=== PATIENT | male | born 1940 | race Caucasian/White ===

== ENCOUNTER 2016-11-11 09:37 | Emergency (ER) | payer MEDICARE, OTHER ==
--- NOTE | 2016-11-11 10:33 | UC ---
Throat Pain/Nasal Carter HPI - HPI Summary HPI Summary: ONE WEEK COUGH SINUS CONGESTION, SORE THROAT. NO FEVER. NOW COUGH KEEPING HIM FROM SLEEPING. - History of Current Complaint Chief Complaint: UCRespiratory Stated Complaint: CONGESTION COUGH Time Seen by Provider: 11/11/16 10:04 Hx Obtained From: Patient Onset/Duration: Gradual Onset, Lasting Weeks, Still Present Severity: Moderate Cough: Nonproductive Associated Signs & Symptoms: Positive: Hoarseness, Sinus Discomfort, Nasal Discharge - Epiglottits Risk Factors Epiglottis Risk Factors: Negative - Allergies/Home Medications Allergies/Adverse Reactions: Allergies Allergy/AdvReac Type Severity Reaction Status Date / Time No Known Allergies Allergy Verified 11/11/16 09:46 Home Medications: Home Medications Atorvastatin* [Lipitor 40 MG*] 11/11/16 [History] Hydrochlorothiazide [Microzide-] 11/11/16 [History] PMH/Surg Hx/FS Hx/Imm Hx Previously Healthy: Yes Endocrine History Of: Denies: Diabetes, Thyroid Disease Cardiovascular History Of: Reports: Hypertension Denies: Cardiac Disorders Respiratory History Of: Denies: COPD, Asthma GI/ History Of: Denies: Ulcer - Surgical History Surgical History: None - Family History Known Family History: Negative: Respiratory Disease - Social History Occupation: Retired Lives: With Family Alcohol Use: None Substance Use Type: None Smoking Status (MU): Light Every Day Tobacco Smoker Type: Smokeless Tobacco Cessation Counseling: Patient Advised to Stop Review of Systems Constitutional: Negative Skin: Negative Eyes: Negative ENT: Sore Throat, Ear Ache, Nasal Discharge Respiratory: Cough Cardiovascular: Negative Gastrointestinal: Negative Genitourinary: Negative Motor: Negative Neurovascular: Negative Musculoskeletal: Negative Neurological: Negative Psychological: Negative All Other Systems Reviewed And Are Negative: Yes Physical Exam Triage Information Reviewed: Yes Appearance: Well-Appearing, No Pain Distress, Well-Nourished Vital Signs: Initial Vital Signs Temp 97.9 F 11/11/16 09:48 Pulse 78 11/11/16 09:48 Resp 16 11/11/16 09:48 BP 133/60 11/11/16 09:48 Pulse Ox 96 11/11/16 09:48 Vital Signs Reviewed: Yes Eye Exam: Normal Eyes: Positive: Conjunctiva Clear ENT: Positive: Hearing grossly normal, Nasal congestion, TM bulging, TM dull Dental Exam: Normal Neck exam: Normal Neck: Positive: Supple, Nontender, No Lymphadenopathy Respiratory Exam: Normal Respiratory: Positive: Chest non-tender, Lungs clear, Normal breath sounds, No respiratory distress Cardiovascular Exam: Normal Abdominal Exam: Normal Musculoskeletal Exam: Normal Neurological Exam: Normal Psychological Exam: Normal Skin Exam: Normal Throat Pain/Nasal Course/Dx - Differential Dx/Diagnosis Differential Diagnosis/HQI/PQRI: Pharyngitis, Sinusitis, Tonsillitis, URI Provider Diagnoses: SINUSITIS Discharge - Discharge Plan Condition: Stable Disposition: HOME Prescriptions: Benzonatate CAP* [Tessalon CAP*] 100 mg PO TID PRN #15 cap PRN Reason: Cough DOXYcycline CAP(*) [DOXYcycline 100MG CAP(*)] 100 mg PO BID #20 cap Patient Education Materials: Sinusitis (ED), Acute Bronchitis (ED) Referrals: Michael Perez MD [Primary Care Provider] -
== END 2016-11-11 10:21 | disposition home or self-care (01) ==
LOC: UCEAST 09:37
DX: J01.90 Acute sinusitis, unspecified (principal); B96.89 Other specified bacterial agents as the cause of diseases classified elsewhere; F17.210 Nicotine dependence, cigarettes, uncomplicated
CPT/HCPCS: 99202; G0463

== ENCOUNTER 2018-01-08 15:01 | Emergency (ER) | payer MEDICARE, OTHER ==
[2018-01-08] MEDS ORDERED: Albuterol/Ipratropium NEB.SOL* Albuterol 2.5 MG/Ipratropium 0.5 MG 3 ML INH ONE (15:55)
[2018-01-08] MEDS ORDERED: methylPREDNISolone 125 MG* 2 ML VIAL IV ONE (16:04)
[2018-01-08 16:12] LABS: ABS Basophils 0.1 10^3/ul (0-0.2); ABS Eosinophils 0.4 10^3/ul (0-0.6); ABS Lymphocytes 1.8 10^3/ul (1.0-4.8); ABS Monocytes 0.9 10^3/ul (0-0.8); ABS Neutrophils 5.5 10^3/ul (1.5-7.7); ABS Nucleated RBC 0 10^3/ul; Hematocrit 46 % (42-52); Hemoglobin 15.7 g/dl (14.0-18.0); Lymphocyte % 20.4 % (25-47); Mean Corpuscular HGB Conc 35 g/dl (31-36); Mean Corpuscular Hemoglobin 31 pg (27-31); Mean Corpuscular Volume 90 fL (80-94); Mean Platelet Volume 9 um3 (7.4-10.4); Nucleated Red Blood Cells % 0.1; Platelet Count 242 10^3/ul (150-450); Red Blood Count 5.04 10^6/ul (4.0-5.4); Red Cell Distribution Width 13 % (10.5-15); White Blood Count 8.6 10^3/ul (3.5-10.8)
[2018-01-08 16:20] LABS: INR 1.01 (0.77-1.02)
--- NOTE | 2018-01-08 16:25 | RAD ---
HISTORY: Shortness of breath COMPARISONS: November 16, 2017 VIEWS: 2: frontal portable view of the chest at 4 9:00 PM FINDINGS: LINES AND TUBES: None. CARDIOMEDIASTINAL SILHOUETTE: The cardiomediastinal silhouette is normal for portable technique. PLEURA: The costophrenic angles are sharp. No pleural abnormalities are noted. LUNG PARENCHYMA: The lungs are clear. ABDOMEN: The upper abdomen is clear. There is no subphrenic gas. BONES AND SOFT TISSUES: Degenerative changes are noted along the spine. IMPRESSION: NO ACTIVE CARDIOPULMONARY DISEASE.
[2018-01-08 16:28] LABS: EGFR Non-African American 85.5 (>60)
[2018-01-08] MEDS ORDERED: Azithromycin TAB* 250 MG PO ONE (17:19)
--- NOTE | 2018-01-08 17:24 | ED ---
Ruy Hudson Stephanie, scribed for René Rodrigues MD on 01/08/18 at 1559 . Shortness of Breath - HPI Summary HPI Summary: The pt is a 77 y/o M presenting to the ED with c/o SOB that began last night. He states he was unable to sleep last night due to his SOB. The pt states he has a hx of respiratory problems for the past 1.5 years. He denies CHF, fever and chills. The pt states he had a breathing treatment today at a [facility] which slightly improved his breathing. - History of Current Complaint Chief Complaint: EDShortnessOfBreath Time Seen by Provider: 01/08/18 15:45 Hx Obtained From: Patient Onset/Duration: Gradual Onset, Lasting Days - 1, Still Present Timing: Constant Dyspnea At: Rest Aggrevating Factors: Nothing Alleviating Factors: Bronchodilators Associated Signs & Symptoms: Cough (Productive) - Allergy/Home Medications Allergies/Adverse Reactions: Allergies Allergy/AdvReac Type Severity Reaction Status Date / Time No Known Allergies Allergy Verified 01/08/18 15:02 PMH/Surg Hx/FS Hx/Imm Hx Endocrine/Hematology History: Denies: Hx Diabetes, Hx Thyroid Disease Cardiovascular History: Reports: Hx Hypertension Respiratory History: Denies: Hx Asthma, Hx Chronic Obstructive Pulmonary Disease (COPD) GI History: Denies: Hx Ulcer - Surgical History Surgery Procedure, Year, and Place: NONE Infectious Disease History: No Infectious Disease History: Denies: Hx Clostridium Difficile, Hx Hepatitis, Hx Human Immunodeficiency Virus (HIV), Hx of Known/Suspected MRSA, Hx Shingles, Hx Tuberculosis, Hx Known/ Suspected VRE, Hx Known/Suspected VRSA, History Other Infectious Disease, Traveled Outside the [place] in Last 30 Days - Family History Known Family History: Negative: Respiratory Disease - Social History Occupation: Retired Lives: Alone Alcohol Use: None Substance Use Type: Reports: None Smoking Status (MU): Former Smoker Type: Smokeless Tobacco Review of Systems Negative: Fever, Chills Positive: Shortness Of Breath, Cough All Other Systems Reviewed And Are Negative: Yes Physical Exam - Summary Physical Exam Summary: General: well-appearing, mild respiratory distress Skin: warm, color reflects adequate perfusion, dry Head: normal Eyes: EOMI, DONALD ENT: normal Neck: supple, nontender Respiratory: bilateral wheezes and crackles, breath sounds present Cardiovascular: RRR Abdomen: soft, nontender Bowel: present Musculoskeletal: normal, strength/ROM intact, no pedal edema Neurological: normal, sensory/motor intact, A&O x3 Psychological: affect/mood appropriate Triage Information Reviewed: Yes Vital Signs On Initial Exam: Initial Vitals Temp Pulse Resp BP Pulse Ox 96.8 F 60 20 120/69 93 01/08/18 15:03 01/08/18 15:03 01/08/18 15:03 01/08/18 15:03 01/08/18 15:03 Vital Signs Reviewed: Yes Diagnostics - Vital Signs Vital Signs Temp Pulse Resp BP Pulse Ox 01/08/18 15:03 96.8 F 60 20 120/69 93 - Laboratory Lab Results: Lab Results 01/08/18 01/08/18 01/08/18 Range/Units 15:50 15:50 15:50 WBC 8.6 (3.5-10.8) 10^3/ul RBC 5.04 (4.0-5.4) 10^6/ul Hgb 15.7 (14.0-18.0) g/dl Hct 46 (42-52) % MCV 90 (80-94) fL MCH 31 (27-31) pg MCHC 35 (31-36) g/dl RDW 13 (10.5-15) % Plt Count 242 (150-450) 10^3/ul MPV 9 (7.4-10.4) um3 Neut % (Auto) 63.4 (38-83) % Lymph % (Auto) 20.4 L (25-47) % [place] % (Auto) 10.5 H (0-7) % Eos % (Auto) 5.0 (0-6) % Baso % (Auto) 0.7 (0-2) % Absolute Neuts (auto) 5.5 (1.5-7.7) 10^3/ul Absolute Lymphs (auto) 1.8 (1.0-4.8) 10^3/ul Absolute Monos (auto) 0.9 H (0-0.8) 10^3/ul Absolute Eos (auto) 0.4 (0-0.6) 10^3/ul Absolute Basos (auto) 0.1 (0-0.2) 10^3/ul Absolute Nucleated RBC 0 10^3/ul Nucleated RBC % 0.1 INR (Anticoag Therapy) (0.77-1.02) Sodium 136 (133-145) mmol/L Potassium 3.8 (3.5-5.0) mmol/L Chloride 103 (101-111) mmol/L Carbon Dioxide 25 (22-32) mmol/L Anion Gap 8 (2-11) mmol/L BUN 18 (6-24) mg/dL Creatinine 0.87 (0.67-1.17) mg/dL Est GFR ( Amer) 110.0 (>60) Est GFR (Non-Af Amer) 85.5 (>60) BUN/Creatinine Ratio 20.7 H (8-20) Glucose 152 H (70-100) mg/dL Lactic Acid (0.5-2.0) mmol/L Calcium 10.2 (8.6-10.3) mg/dL Magnesium 2.0 (1.9-2.7) mg/dL Total Bilirubin 1.20 H (0.2-1.0) mg/dL AST 18 (13-39) U/L ALT 17 (7-52) U/L Alkaline Phosphatase 76 (34-104) U/L Troponin I 0.01 (<0.04) ng/mL C-Reactive Protein < 1.00 (< 5.00) mg/L B-Natriuretic Peptide 36 ( - 100) pg/mL Total Protein 7.5 (6.4-8.9) g/dL Albumin 4.2 (3.2-5.2) g/dL Globulin 3.3 (2-4) g/dL Albumin/Globulin Ratio 1.3 (1-3) Lipase 14 (11.0-82.0) U/L TSH Pending 01/08/18 01/08/18 Range/Units 15:50 16:10 WBC (3.5-10.8) 10^3/ul RBC (4.0-5.4) 10^6/ul Hgb (14.0-18.0) g/dl Hct (42-52) % MCV (80-94) fL MCH (27-31) pg MCHC (31-36) g/dl RDW (10.5-15) % Plt Count (150-450) 10^3/ul MPV (7.4-10.4) um3 Neut % (Auto) (38-83) % Lymph % (Auto) (25-47) % [place] % (Auto) (0-7) % Eos % (Auto) (0-6) % Baso % (Auto) (0-2) % Absolute Neuts (auto) (1.5-7.7) 10^3/ul Absolute Lymphs (auto) (1.0-4.8) 10^3/ul Absolute Monos (auto) (0-0.8) 10^3/ul Absolute Eos (auto) (0-0.6) 10^3/ul Absolute Basos (auto) (0-0.2) 10^3/ul Absolute Nucleated RBC 10^3/ul Nucleated RBC % INR (Anticoag Therapy) 1.01 (0.77-1.02) Sodium (133-145) mmol/L Potassium (3.5-5.0) mmol/L Chloride (101-111) mmol/L Carbon Dioxide (22-32) mmol/L Anion Gap (2-11) mmol/L BUN (6-24) mg/dL Creatinine (0.67-1.17) mg/dL Est GFR ( Amer) (>60) Est GFR (Non-Af Amer) (>60) BUN/Creatinine Ratio (8-20) Glucose (70-100) mg/dL Lactic Acid 1.7 (0.5-2.0) mmol/L Calcium (8.6-10.3) mg/dL Magnesium (1.9-2.7) mg/dL Total Bilirubin (0.2-1.0) mg/dL AST (13-39) U/L ALT (7-52) U/L Alkaline Phosphatase (34-104) U/L Troponin I (<0.04) ng/mL C-Reactive Protein (< 5.00) mg/L B-Natriuretic Peptide ( - 100) pg/mL Total Protein (6.4-8.9) g/dL Albumin (3.2-5.2) g/dL Globulin (2-4) g/dL Albumin/Globulin Ratio (1-3) Lipase (11.0-82.0) U/L TSH Result Diagrams: 01/08/18 15:50 01/08/18 15:50 Lab Statement: Any lab studies that have been ordered have been reviewed, and results considered in the medical decision making process. - Radiology CXR Xray Interpretation: No Acute Changes Radiology Interpretation Completed By: Radiologist - NO ACTIVE CARDIOPULMONARY DISEASE. ED physician reviewed and agrees with this report. - EKG 16:34 Cardiac Rate: NL EKG Rhythm: Sinus Rhythm - 66 BPM Ectopy: PACs EKG Interpretation: LBBB Course/Dx - Course Course Of Treatment: BP noted and advised to follow up with PCP. IMPROVED IN ED AFTER DUONEB AND SOLUMEDROL IV. DISCUSSED RESULTS WITH PATIENT. [facility]; RETURN IF WORSE. - Diagnoses Provider Diagnoses: HTN (hypertension), COPD (chronic obstructive pulmonary disease), Bronchitis Discharge - Sign-Out/Discharge Documenting (check all that apply): Discharge - Discharge Plan Condition: Stable Disposition: HOME Prescriptions: Azithromycin 250 mg PO DAILY #4 tablet predniSONE TAB* [Deltasone TAB*] 40 mg PO DAILY #8 tab Patient Education Materials: Acute Bronchitis (ED), COPD (Chronic Obstructive Pulmonary Disease) (ED) Referrals: Michael Perez MD [Primary Care Provider] - Additional Instructions: FOLLOW UP WITH YOUR DOCTOR. RETURN TO THE EMERGENCY DEPARTMENT FOR ANY WORSENING OF YOUR CONDITION OR QUESTIONS OR CONCERNS. YOUR BLOOD PRESSURE WAS ELEVATED TODAY; FOLLOW UP WITH YOUR PRIMARY CARE DOCTOR WITHIN ONE WEEK. - Billing Disposition and Condition Condition: STABLE Disposition: HOME The documentation as recorded by the Ruy contreras Stephanie accurately reflects the service I personally performed and the decisions made by me, René Rodrigues MD.
[2018-01-08 17:35] VITALS: BP 135/70
== END 2018-01-08 17:35 | disposition home or self-care (01) ==
LOC: ED 15:01
DX: J44.9 Chronic obstructive pulmonary disease, unspecified (principal); I10 Essential (primary) hypertension; Z87.891 Personal history of nicotine dependence
CPT/HCPCS: 36415; 71045; 80053; 83605; 83690; 83735; 83880; 84443; 84484; 85025; 85610; 86140; 93005; 94640; 96374; 99283; A9270-GY; J2930

== ENCOUNTER 2019-01-21 09:32 | Emergency (ER) | payer MEDICARE, OTHER ==
[2019-01-21] MEDS ORDERED: methylPREDNISolone 125 MG* 2 ML VIAL IV ONE (09:45)
[2019-01-21] MEDS ORDERED: NS 0.9% 1000 ML** 1,000 ML IV ONE (09:45)
[2019-01-21] MEDS ORDERED: Albuterol/Ipratropium NEB.SOL* Albuterol 2.5 MG/Ipratropium 0.5 MG 3 ML INH ONE (09:45)
[2019-01-21 10:13] LABS: ABS Basophils 0 10^3/ul (0-0.2); ABS Eosinophils 0.1 10^3/ul (0-0.6); ABS Lymphocytes 0.9 10^3/ul (1.0-4.8); ABS Monocytes 0.3 10^3/ul (0-0.8); ABS Neutrophils 5.6 10^3/ul (1.5-7.7); ABS Nucleated RBC 0 10^3/ul; Hematocrit 48 % (36-46); Hemoglobin 16.2 g/dL (14.0-18.0); Lymphocyte % 12.7 %; Mean Corpuscular HGB Conc 34 g/dL (31-36); Mean Corpuscular Hemoglobin 30 pg (27-31); Mean Corpuscular Volume 90 fL (80-94); Mean Platelet Volume 8.6 fL (7.4-10.4); Nucleated Red Blood Cells % 0.1; Platelet Count 240 10^3/uL (150-450); Red Blood Count 5.35 10^6 /uL (4.18-5.48); Red Cell Distribution Width 13 % (10.5-15); White Blood Count 6.9 10^3/uL (3.5-10.8)
[2019-01-21 10:34] LABS: ALT 17 U/L (7-52); AST 14 U/L (13-39); Albumin 4.2 g/dL (3.2-5.2); Albumin/Globulin Ratio 1.4 (1-3); Alkaline Phosphatase 65 U/L (34-104); Anion Gap 6 mmol/L (2-11); BUN/Creatinine Ratio 24.7 (8-20); Blood Urea Nitrogen 20 mg/dL (6-24); C Reactive Protein < 1.00 mg/L (<8.01); CO2 Carbon Dioxide 29 mmol/L (22-32); Chloride 100 mmol/L (101-111); EGFR African American 112.1 (>60); EGFR Non-African American 92.6 (>60); Glucose 140 mg/dL (70-100); Potassium 4.3 mmol/L (3.5-5.0); Sodium 135 mmol/L (135-145); Total Protein 7.2 g/dL (6.4-8.9)
[2019-01-21 10:35] LABS: Troponin I 0.01 ng/mL (<0.04)
[2019-01-21 12:17] VITALS: BP 127/80
--- NOTE | 2019-01-21 17:24 | ED ---
Respiratory - HPI Summary HPI Summary: Patient is a 78-year-old male with a new and recent history of sarcoidosis diagnosed 2 months ago which is mild presenting to the ED with shortness of breath. He states he has a low-dose steroid he was placed on at home, 10 mg PO prednisone daily. He also has nebulizer at home which she has been using without improvement. He states he has had exacerbations in the past over the course of the past year or so and as needed an increased dose of steroids. He endorses symptoms of shortness of breath, and wheezing. Worse with lying flat, better with sitting upright. Denies history of CHF. Denies any cough or cough with production. Denies any body aches, fevers, sweats, chills, CP. - History of Current Complaint Chief Complaint: EDShortnessOfBreath Stated Complaint: CANT BREATHE PER PT Time Seen by Provider: 01/21/19 09:38 Hx Obtained From: Patient Onset/Duration: Sudden Onset Timing: Constant Initial Severity: Moderate Current Severity: Moderate Pain Intensity: 0 Character: Wheezing, Dyspnea at Rest, Orthopnea Sputum Amount: Moderate Aggravating Factor(s): Nothing Alleviating Factor(s): Nothing, Neb. Bronchodilators (Frequency Of Use) - 4-5 times per day, Steriods - 10mg prednisone daily Associated Signs and Symptoms: SOB - Risk Factors Status Asthmaticus Risk Factors: Recent Steroids - Allergy/Home Medications Allergies/Adverse Reactions: Allergies Allergy/AdvReac Type Severity Reaction Status Date / Time No Known Allergies Allergy Verified 01/08/18 15:02 Home Medications: Home Medications Albuterol 2.5MG/3ML (0.083%)* [Ventolin 2.5 MG/3 ML NEB.HIRAM*] 2.5 mg INH Q4H 12/10 [History Confirmed 01/21/19] Lisinopril TAB* [Prinivil TAB*] 10 mg PO DAILY 01/21/19 [History Confirmed 01/21] predniSONE TAB* [Deltasone 20 MG TAB*] 10 mg PO DAILY 01/21/19 [History Confirmed 01/21/19] PMH/Surg Hx/FS Hx/Imm Hx Previously Healthy: Yes Endocrine/Hematology History: Denies: Hx Diabetes, Hx Thyroid Disease Cardiovascular History: Reports: Hx Hypertension Respiratory History: Denies: Hx Asthma, Hx Chronic Obstructive Pulmonary Disease (COPD) GI History: Denies: Hx Ulcer - Surgical History Surgery Procedure, Year, and Place: NONE - Immunization History Hx Pertussis Vaccination: No Immunizations Up to Date: Yes Infectious Disease History: No Infectious Disease History: Denies: Hx Clostridium Difficile, Hx Hepatitis, Hx Human Immunodeficiency Virus (HIV), Hx of Known/Suspected MRSA, Hx Shingles, Hx Tuberculosis, Hx Known/ Suspected VRE, Hx Known/Suspected VRSA, History Other Infectious Disease, Traveled Outside the [place] in Last 30 Days - Family History Known Family History: Negative: Respiratory Disease - Social History Occupation: Unemployed Lives: With Family Alcohol Use: None Hx Substance Use: No Substance Use Type: Reports: None Hx Tobacco Use: Yes Smoking Status (MU): Former Smoker Type: Smokeless Tobacco Review of Systems Constitutional: Negative Negative: Fever, Chills, Fatigue, Skin Diaphoresis Negative: Palpitations, Chest Pain Positive: Shortness Of Breath. Negative: Cough Genitourinary: Negative Positive: no symptoms reported, see HPI Negative: Arthralgia, Myalgia Skin: Negative Neurological: Negative All Other Systems Reviewed And Are Negative: Yes Physical Exam Triage Information Reviewed: Yes Vital Signs On Initial Exam: Initial Vitals Temp Pulse Resp BP Pulse Ox 97.8 F 91 26 138/102 95 01/21/19 09:35 01/21/19 09:35 01/21/19 09:35 01/21/19 09:35 01/21/19 09:35 Vital Signs Reviewed: Yes Appearance: Positive: Well-Appearing, Well-Nourished Skin: Positive: Warm, Skin Color Reflects Adequate Perfusion Head/Face: Positive: Normal Head/Face Inspection Eyes: Positive: EOMI, Conjunctiva Clear Neck: Positive: Supple, No Lymphadenopathy Respiratory/Lung Sounds: Positive: Wheezes Cardiovascular: Positive: RRR, Pulses are Symmetrical in both Upper and Lower Extremities Musculoskeletal: Positive: Strength/ROM Intact Neurological: Positive: Speech Normal Psychiatric: Positive: Affect/Mood Appropriate Diagnostics - Vital Signs Vital Signs Temp Pulse Resp BP Pulse Ox 01/21/19 12:17 98.1 F 80 16 127/80 93 01/21/19 11:00 60 91 01/21/19 10:48 62 111/66 92 01/21/19 10:18 75 16 92 01/21/19 10:01 96 91 01/21/19 09:45 22 01/21/19 09:44 85 92 01/21/19 09:35 97.8 F 91 26 138/102 95 - Laboratory Lab Results: Lab Results 01/21/19 01/21/19 01/21/19 Range/Units 10:05 10:05 10:05 WBC 6.9 (3.5-10.8) 10^3/uL RBC 5.35 (4.18-5.48) 10^6 /uL Hgb 16.2 (14.0-18.0) g/dL Hct 48 H (36-46) % MCV 90 (80-94) fL MCH 30 (27-31) pg MCHC 34 (31-36) g/dL RDW 13 (10.5-15) % Plt Count 240 (150-450) 10^3/uL MPV 8.6 (7.4-10.4) fL Neut % (Auto) 81.0 % Lymph % (Auto) 12.7 % [place] % (Auto) 5.0 % Eos % (Auto) 1.0 % Baso % (Auto) 0.3 % Absolute Neuts (auto) 5.6 (1.5-7.7) 10^3/ul Absolute Lymphs (auto) 0.9 L (1.0-4.8) 10^3/ul Absolute Monos (auto) 0.3 (0-0.8) 10^3/ul Absolute Eos (auto) 0.1 (0-0.6) 10^3/ul Absolute Basos (auto) 0 (0-0.2) 10^3/ul Absolute Nucleated RBC 0 10^3/ul Nucleated RBC % 0.1 Sodium 135 (135-145) mmol/L Potassium 4.3 (3.5-5.0) mmol/L Chloride 100 L (101-111) mmol/L Carbon Dioxide 29 (22-32) mmol/L Anion Gap 6 (2-11) mmol/L BUN 20 (6-24) mg/dL Creatinine 0.81 (0.67-1.17) mg/dL Est GFR ( Amer) 112.1 (>60) Est GFR (Non-Af Amer) 92.6 (>60) BUN/Creatinine Ratio 24.7 H (8-20) Glucose 140 H (70-100) mg/dL Lactic Acid 1.4 (0.5-2.0) mmol/L Calcium 10.0 (8.6-10.3) mg/dL Total Bilirubin 1.50 H (0.2-1.0) mg/dL AST 14 (13-39) U/L ALT 17 (7-52) U/L Alkaline Phosphatase 65 (34-104) U/L Troponin I 0.01 (<0.04) ng/mL C-Reactive Protein < 1.00 (<8.01) mg/L B-Natriuretic Peptide (<=100) pg/mL Total Protein 7.2 (6.4-8.9) g/dL Albumin 4.2 (3.2-5.2) g/dL Globulin 3.0 (2-4) g/dL Albumin/Globulin Ratio 1.4 (1-3) /12/10 Range/Units 10:05 WBC (3.5-10.8) 10^3/uL RBC (4.18-5.48) 10^6 /uL Hgb (14.0-18.0) g/dL Hct (36-46) % MCV (80-94) fL MCH (27-31) pg MCHC (31-36) g/dL RDW (10.5-15) % Plt Count (150-450) 10^3/uL MPV (7.4-10.4) fL Neut % (Auto) % Lymph % (Auto) % [place] % (Auto) % Eos % (Auto) % Baso % (Auto) % Absolute Neuts (auto) (1.5-7.7) 10^3/ul Absolute Lymphs (auto) (1.0-4.8) 10^3/ul Absolute Monos (auto) (0-0.8) 10^3/ul Absolute Eos (auto) (0-0.6) 10^3/ul Absolute Basos (auto) (0-0.2) 10^3/ul Absolute Nucleated RBC 10^3/ul Nucleated RBC % Sodium (135-145) mmol/L Potassium (3.5-5.0) mmol/L Chloride (101-111) mmol/L Carbon Dioxide (22-32) mmol/L Anion Gap (2-11) mmol/L BUN (6-24) mg/dL Creatinine (0.67-1.17) mg/dL Est GFR ( Amer) (>60) Est GFR (Non-Af Amer) (>60) BUN/Creatinine Ratio (8-20) Glucose (70-100) mg/dL Lactic Acid (0.5-2.0) mmol/L Calcium (8.6-10.3) mg/dL Total Bilirubin (0.2-1.0) mg/dL AST (13-39) U/L ALT (7-52) U/L Alkaline Phosphatase (34-104) U/L Troponin I (<0.04) ng/mL C-Reactive Protein (<8.01) mg/L B-Natriuretic Peptide 31 (<=100) pg/mL Total Protein (6.4-8.9) g/dL Albumin (3.2-5.2) g/dL Globulin (2-4) g/dL Albumin/Globulin Ratio (1-3) Result Diagrams: 01/21/19 10:05 01/21/19 10:05 Lab Statement: Any lab studies that have been ordered have been reviewed, and results considered in the medical decision making process. Disposition - Course Course Of Treatment: On arrival into the ED, patient is given a DuoNeb for bilateral wheezing without rhonchorous sounds. Radiology report of CT chest requested from [facility]: Interval clearing of opacities present previously in the lower lobe bronchi. Mild bronchiectasis and bronchial thickening are noted in there are mild secretions in the trachea. There is otherwise no significant interval change. There is mild nonspecific opacity in the right lower lobe inferiorly. X-ray obtained: Stigmata of obstructive lung disease. No acute pulmonary or cardiac process evident. On reexamination, patient is feeling improved after 1 DuoNeb. Labs obtained and are all WNL including a BNP. Wheezing reduced throughout. He will be given increased and taper dose of steroids at this time and will follow up with Dr. Chen. He voices understanding of this plan and states he is asymptomatic on discharge. - Diagnoses Provider Diagnoses: Wheezing, Shortness of breath, COPD exacerbation Discharge - Sign-Out/Discharge Documenting (check all that apply): Patient Departure Patient Received Moderate/Deep Sedation with Procedure: No - Discharge Plan Condition: Stable Disposition: HOME Prescriptions: predniSONE [Prednisone 20 MG TAB] 20 mg PO SEE INSTRUCTIONS #24 tablet Patient Education Materials: COPD (Chronic Obstructive Pulmonary Disease) (ED) Referrals: Michael Perez MD [Primary Care Provider] - Meenakshi Chen MD [Medical Doctor] - Additional Instructions: Prednisone: Take 3 tabs x 3 days; 2 tabs x 5 days, take 1 tab x 5 days After this course, please resume your 10mg at home daily of prednisone Please follow up with Dr. Chen - call to make an appt If any symptoms become worse - return to the ED Continue your at home nebulizer treatments - Billing Disposition and Condition Condition: STABLE Disposition: Home
== END 2019-01-21 12:17 | disposition home or self-care (01) ==
LOC: ED 09:32
DX: J44.1 Chronic obstructive pulmonary disease with (acute) exacerbation (principal); Z87.891 Personal history of nicotine dependence; I10 Essential (primary) hypertension
CPT/HCPCS: 36415; 71046; 80053; 83605; 83880; 84484; 85025; 86140; 96374; 99282; A9270-GY; J2930

== ENCOUNTER 2019-12-05 11:11 | Emergency (ER) | payer MEDICARE, OTHER ==
--- NOTE | 2019-12-05 13:29 | ED ---
Neurological HPI - HPI Summary HPI Summary: Patient is a 79 y/o M presenting to the ED for a chief complaint of neurological deficit that occurred on 12/04/19. Patient reports having slurred speech while talking to his sister on the phone that lasted for 1 minute before resolving. He was sitting when the slurred speech began. Patient denies headache , nausea, vomiting, myalgia, or fever. Patient states that he believes he may have had a TIA. No aggravating factors are reported. PMHx is significant for COPD, HLD, and HTN, but he denies any cardiac problems. Dr. Michael Perez is his PCP, which he last saw one week ago and diagnosed with bronchitis. At that time , he was prescribed antibiotics, which he is currently completing. - History of Current Complaint Chief Complaint: EDNeurologicalDeficit Stated Complaint: POSS SEIZURE YESTERDAY PER PT Time Seen by Provider: 12/05/19 13:23 Hx Obtained From: Patient Onset/Duration: Sudden Onset, Started hours ago, Resolved Timing: Sudden Onset Onset Severity: Moderate Current Severity: Moderate Neurological Deficit Location: Facial - Slurred speech Pain Intensity: 0 Pain Scale Used: 0-10 Numeric Character: Impaired Speech - Slurred speech, resolved Aggravating: Nothing Alleviating: Spontanious Resolution Associated Signs and Symptoms: Positive: Impaired Speech - Slurred speech, resolved. Negative: Headache, Pain - Negative myalgia, Nausea/Vomiting, Fever Related Hx: Recent Illness - Bronchitis - Allergy/Home Medications Allergies/Adverse Reactions: Allergies Allergy/AdvReac Type Severity Reaction Status Date / Time No Known Allergies Allergy Verified 12/05/19 11:17 Home Medications: Home Medications DOXYcycline CAP(*) [DOXYcycline 100MG CAP(*)] 100 mg PO BID 12/05/19 [History Confirmed 12/05/19] Lisinopril/HCTZ 10.5(NF) [Zestoretic 10.5(NF)] 1 tab PO BID 12/05/19 [ History Confirmed 12/05/19] PMH/Surg Hx/FS Hx/Imm Hx Previously Healthy: Yes Endocrine/Hematology History: Denies: Hx Diabetes, Hx Thyroid Disease Cardiovascular History: Reports: Hx Hypercholesterolemia, Hx Hypertension Respiratory History: Reports: Hx Chronic Obstructive Pulmonary Disease (COPD) Denies: Hx Asthma GI History: Denies: Hx Ulcer Sensory History: Denies: Hx Legally Blind, Hx Deafness Opthamlomology History: Denies: Hx Legally Blind EENT History: Denies: Hx Deafness - Surgical History Surgical History: None Surgery Procedure, Year, and Place: NONE Infectious Disease History: No Infectious Disease History: Denies: Hx Clostridium Difficile, Hx Hepatitis, Hx Human Immunodeficiency Virus (HIV), Hx of Known/Suspected MRSA, Hx Shingles, Hx Tuberculosis, Hx Known/ Suspected VRE, Hx Known/Suspected VRSA, History Other Infectious Disease, Traveled Outside the [place] in Last 30 Days - Family History Known Family History: Negative: Respiratory Disease - Social History Occupation: Retired Alcohol Use: None Hx Substance Use: No Substance Use Type: Reports: None Hx Tobacco Use: Yes Smoking Status (MU): Former Smoker Type: Smokeless Tobacco Review of Systems Negative: Fever Negative: Vomiting, Nausea Negative: Myalgia Positive: Slurred Speech - Resolved. Negative: Headache All Other Systems Reviewed And Are Negative: Yes Physical Exam - Summary Physical Exam Summary: Appearance: The patient is well-nourished in no acute distress and in no acute pain. Skin: The skin is warm and dry, and skin color reflects adequate perfusion. HEENT: The head is normocephalic and atraumatic. The pupils are equal and reactive. The conjunctivae are clear and without drainage. Nares are patent and without drainage. Mouth reveals moist mucous membranes, and the throat is without erythema and exudate. The external ears are intact. The ear canals are patent and without drainage. The tympanic membranes are intact. Neck: The neck is supple with full range of motion and non-tender. There are no carotid bruits. There is no neck vein distension. Respiratory: Chest is non-tender. Lungs are clear to auscultation and breath sounds are symmetrical and equal. Cardiovascular: Heart is regular rate and rhythm. There is no murmur or rub auscultated. There is no peripheral edema and pulses are symmetrical and equal. Abdomen: The abdomen is soft and non-tender. There are normal bowel sounds heard in all four quadrants and there is no organomegaly palpated. Musculoskeletal: There is no back tenderness noted. Extremities are non-tender with full range of motion. There is good capillary refill. There is no peripheral edema or calf tenderness elicited. Neurological: Patient is alert and oriented to person, place and time. The patient has symmetrical motor strength in all four extremities. Cranial nerves are grossly intact. Deep tendon reflexes are symmetrical and equal in all four extremities. NIH Stroke Scale: 0. Psychiatric: The patient has an appropriate affect and does not exhibit any anxiety or depression. Triage Information Reviewed: Yes Vital Signs On Initial Exam: Initial Vitals Temp Pulse Resp BP Pulse Ox 97.6 F 76 16 136/84 93 12/05/19 11:14 12/05/19 11:14 12/05/19 11:14 12/05/19 11:14 12/05/19 11:14 Vital Signs Reviewed: Yes - [place] Coma Scale Best Eye Response: 4 - Spontaneous Best Motor Response: 6 - Obeys Commands Best Verbal Response: 5 - Oriented Coma Scale Total: 15 Procedures - Sedation Patient Received Moderate/Deep Sedation with Procedure: No Diagnostics - Vital Signs Vital Signs Temp Pulse Resp BP Pulse Ox 12/05/19 11:14 97.6 F 76 16 136/84 93 - Laboratory Result Diagrams: 12/05/19 14:38 12/05/19 14:38 Lab Statement: Any lab studies that have been ordered have been reviewed, and results considered in the medical decision making process. - CT Brain CT CT Interpretation Completed By: Radiologist Summary of CT Findings: Brain CT IMPRESSION: 1. No acute intracranial abnormality by CT (MRI more sensitive for acute infarct). 2. Mild chronic small vessel ischemic disease is likely. 3. Probable 2.6 cm subcutaneous cyst in the left posterior scalp. Correlate with direct inspection. Reviewed by Dr. Ling. Head CTA CT Interpretation Completed By: Radiologist Summary of CT Findings: Head CTA IMPRESSION: 1. 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 2. No acute large vessel occlusion or severe stenosis. 3. Intracranial atherosclerotic disease. 4. Approximately 75% stenosis near the origin of the left internal carotid artery with mixed soft and calcified plaque. 5. No acute occlusive disease. Reviewed by Dr. Ling. - EKG 14:49 Cardiac Rate: Bradycardia - 53 BPM EKG Rhythm: Sinus Bradycardia ST Segment: Normal Ectopy: None Summary of EKG Findings: EKG at 14:49 shows sinus bradycardia with 53 BPM, LBBB unchanged from previous EKG, normal ST, no ectopy, no STEMI. Reviewed and interpreted by Dr. Ling. NIH Scale - NIH Scale Level of Consciousness: Alert/Keenly Responsive Ask Patient the Month and His/Her Age: Both Correct Ask Pt to Open/Close Eyes and Litigation Attorney/Release Non-Paretic Hand: Both Correctly Best Gaze (Only Horizontal Eye Movement): Normal Visual Field Testing: No Visual Loss Facial Paresis-Pt to Smile & Close Eyes or Grimace Symmetry: Normal/Symmetrical Motor Function - Right Arm: No Drift-Holds 10 Seconds Motor Function - Left Arm: No Drift-Holds 10 Seconds Motor Function - Right Leg: No Drift-Holds 10 Seconds Motor Function - Left Leg: No Drift-Holds 10 Seconds Limb Ataxia-Must be out of Proportion to Weakness Present: Absent Sensory (Use Pinprick to Test Arms/Legs/Trunk/Face): Normal Best Language (Describe Picture, Name Items): No Aphasia Dysarthria (Read Several Words): Normal Extinction and Inattention: No Abnormality Total Score: 0 Re-Evaluation - Re-Evaluation First Eval Re-Evaluation Time: 16:15 Change: Unchanged Comment: At 16:15, I discussed the imaging reports with the patient. He was instructed to follow up with the [place] [facility]. Course/Dx - Course Course Of Treatment: Mr. Horan presented with a good history for TIA. His initial workup including labs and CT scan was negative and I spoke with Dr. Mooney. He recommended admission to the hospital but the patient was adamant against that. Dr. 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 The patient was still adamant about going home and I recommended daily baby aspirin after giving an adult strength aspirin here. I recommended close follow-up for further testing. - Diagnoses Provider Diagnoses: TIA (transient ischemic attack) - Physician Notifications Discussed Care Of Patient With: Mic Mooney - At 15:06, Dr. Frank Mooney recommends admission to [facility] and a CTA with IV contrast if the patient declines admission. Time Discussed With Above Provider: 15:06 Discharge ED - Sign-Out/Discharge Documenting (check all that apply): Patient Departure - Discharge - Discharge Plan Condition: Stable Disposition: HOME Patient Education Materials: Transient Ischemic Attack (ED) Referrals: Michael Perez MD [Primary Care Provider] - Additional Instructions: RETURN TO THE EMERGENCY DEPARTMENT FOR CHANGING OR WORSENING SYMPTOMS. Follow up with the [place] clinic within the next week. Take a baby aspirin daily. - Billing Disposition and Condition Condition: STABLE Disposition: Home - Attestation Statements Document Initiated by Franny: Yes Documenting Scribe: Zoe Nayak Provider For Whom Scribe is Documenting (Include Credential): Ori Ling MD Scribe Attestation: I, Zoe Nayak, scribed for Ori Ling MD on 12/05/19 at 1805. Scribe Documentation Reviewed: Yes Provider Attestation: The documentation as recorded by the maryannibe, Zoe Nayak accurately reflects the service I personally performed and the decisions made by me, Ori Ling MD Status of Scribe Document: Viewed
[2019-12-05 14:47] LABS: Hematocrit 46 % (42-52); Hemoglobin 15.8 g/dL (14.0-18.0); Mean Corpuscular HGB Conc 34 g/dL (31-36); Mean Corpuscular Hemoglobin 31 pg (27-31); Mean Corpuscular Volume 91 fL (80-94); Mean Platelet Volume 8.8 fL (7.4-10.4); Platelet Count 281 10^3/uL (150-450); Red Blood Count 5.09 10^6 /uL (4.18-5.48); Red Cell Distribution Width 12 % (10-15); White Blood Count 8.9 10^3/uL (3.5-10.8)
[2019-12-05 14:53] LABS: INR 1.08 (0.82-1.09)
[2019-12-05 15:07] LABS: Albumin 4.1 g/dL (3.2-5.2); Albumin/Globulin Ratio 1.3 (1-3); BUN/Creatinine Ratio 18.7 (8-20); Calcium 9.9 mg/dL (8.6-10.3); EGFR African American 97.8 (>60); EGFR Non-African American 80.8 (>60); Globulin 3.2 g/dL (2-4); Potassium 4.4 mmol/L (3.5-5.0); Total Bilirubin 1.5 mg/dL (0.2-1.0); Total Protein 7.3 g/dL (6.4-8.9)
[2019-12-05] MEDS ORDERED: Aspirin TAB* 325 MG PO ONE (15:09)
[2019-12-05] MEDS ORDERED: Iohexol 350* (CONTRAST) 500 ML MDV IV ONE (15:15)
[2019-12-05 15:22] LABS: ABS Basophils 0.1 10^3/ul (0-0.2); ABS Lymphocytes 1.3 10^3/ul (1.0-4.8); ABS Monocytes 0.6 10^3/ul (0-0.8); Lymphocyte % 14.2 %
[2019-12-05 15:43] LABS: TSH (Thyroid Stimulating Horm) 0.7 mcIU/mL (0.34-5.60)
[2019-12-05] MEDS ORDERED: Aspirin 81 mg CHEW TAB* 81 MG TAB.CHEW PO ONE (16:00)
[2019-12-05 16:24] VITALS: BP 107/77
== END 2019-12-05 16:20 | disposition home or self-care (01) ==
LOC: ED 11:11
DX: G45.9 Transient cerebral ischemic attack, unspecified (principal); Z87.891 Personal history of nicotine dependence; I10 Essential (primary) hypertension; E78.00 Pure hypercholesterolemia, unspecified; J44.9 Chronic obstructive pulmonary disease, unspecified; E78.5 Hyperlipidemia, unspecified; R00.1 Bradycardia, unspecified
CPT/HCPCS: 36415; 70450; 70496; 70498; 80053; 83605; 84443; 84484; 85025; 85610; 93005; 99282; A9270-GY; Q9967

== ENCOUNTER 2022-05-26 13:21 | Inpatient (IN) ==
[2022-05-26] MEDS ORDERED: Iohexol 350 (CONTRAST) 500 ML MDV IV ONE (14:01)
[2022-05-26] MEDS ORDERED: Lactated Ringers 1000 ml BAG 1,000 ML IV ONE (15:04)
[2022-05-26 15:33] LABS: ABS Basophils 0.1 10^3/ul (0-0.2); ABS Eosinophils 0.2 10^3/ul (0-0.6); ABS Lymphocytes 1.8 10^3/ul (1.0-4.8); ABS Monocytes 1.3 10^3/ul (0-0.8); ABS Neutrophils 6.2 10^3/ul (1.5-7.7); Eosinophil % 1.9 %; Hematocrit 44 % (42-52); Hemoglobin 14.8 g/dL (14.0-18.0); Lymphocyte % 18.6 %; Mean Corpuscular HGB Conc 33 g/dL (31-36); Mean Corpuscular Hemoglobin 30 pg (27-31); Mean Corpuscular Volume 90 fL (80-94); Mean Platelet Volume 8.6 fL (7.4-10.4); Nucleated Red Blood Cells % 0.1; Platelet Count 274 10^3/uL (150-450); Red Blood Count 4.91 10^6 /uL (4.18-5.48); Red Cell Distribution Width 13 % (10-15); White Blood Count 9.5 10^3/uL (3.5-10.8)
[2022-05-26 15:39] LABS: Urine Appearance Clear; Urine Bilirubin Negative (Negative); Urine Blood Trace (Intact) (Negative); Urine Color Yellow; Urine Glucose Negative (Negative); Urine Ketones Negative (Negative); Urine Protein Negative (Negative); Urine Specific Gravity <=1.005 (1.005-1.030); Urine Urobilinogen 0.2 (Negative) (Negative)
[2022-05-26 15:40] LABS: Urine Nitrite Negative (Negative)
[2022-05-26 15:45] LABS: Urine Bacteria Absent (Absent); Urine Red Blood Cell Trace(0-2/hpf) (Absent); Urine White Blood Cell Trace(0-5/hpf) (Absent)
[2022-05-26 16:03] LABS: Albumin 3.4 g/dL (3.2-5.2); Albumin/Globulin Ratio 1.3 (1-3); Calcium 9.9 mg/dL (8.6-10.3); Globulin 2.6 g/dL (2-4); Potassium 4.1 mmol/L (3.5-5.0); Total Bilirubin 1.3 mg/dL (0.2-1.0); eGFR CKD-EPI 65.4 (>60)
[2022-05-26] MEDS ORDERED: Hydrocortisone INJ 100 MG/2ML 2 ML VIAL IV ONE (16:14)
[2022-05-26] MEDS ORDERED: Albuterol HFA INHALER 8 gm MDI INH PRN (18:45)
[2022-05-26 19:02] LABS: CRP High Sensitivity 11.67 mg/L (<2.00)
[2022-05-26 19:04] LABS: Carcinoembryonic Antigen 31.9 ng/mL (0.1-5.0)
[2022-05-26 19:41] LABS: High Sensitivity Troponin 1 Hr 12 pg/mL (<20)
[2022-05-26] MEDS ORDERED: Gadoteridol (CONTRAST) 279.3 MG/ML 10 ML IV ONE (20:05)
[2022-05-26] MEDS: Enoxaparin 40 MG/0.4 ML SYR SUBCUT SCH (21:58)
[2022-05-27] MEDS: NS 0.9% 1000 ml BAG 1,000 ML IV SCH ×3 (02:38→23:28)
[2022-05-27 05:51] LABS: ABS Basophils 0.1 10^3/ul (0-0.2); ABS Lymphocytes 1.2 10^3/ul (1.0-4.8); ABS Neutrophils 5.9 10^3/ul (1.5-7.7); Eosinophil % 0.5 %; Hematocrit 42 % (42-52); Hemoglobin 14.1 g/dL (14.0-18.0); Lymphocyte % 14.7 %; Mean Corpuscular HGB Conc 33 g/dL (31-36); Mean Corpuscular Hemoglobin 30 pg (27-31); Mean Corpuscular Volume 90 fL (80-94); Mean Platelet Volume 8.8 fL (7.4-10.4); Platelet Count 255 10^3/uL (150-450); Red Blood Count 4.71 10^6 /uL (4.18-5.48); Red Cell Distribution Width 13 % (10-15); White Blood Count 8.2 10^3/uL (3.5-10.8)
[2022-05-27 06:07] LABS: Calcium 9.7 mg/dL (8.6-10.3); Potassium 4.8 mmol/L (3.5-5.0); eGFR CKD-EPI 82.5 (>60)
[2022-05-27] MEDS: Aspirin EC 81 mg TAB.EC (enteric coated) PO SCH (08:02)
[2022-05-27] MEDS: Enoxaparin 40 MG/0.4 ML SYR SUBCUT SCH (21:31)
[2022-05-28 06:03] LABS: ABS Lymphocytes 0.4 10^3/ul (1.0-4.8); ABS Monocytes 0.2 10^3/ul (0-0.8); ABS Neutrophils 6.5 10^3/ul (1.5-7.7); Hematocrit 40 % (42-52); Hemoglobin 13.7 g/dL (14.0-18.0); Lymphocyte % 6.2 %; Mean Corpuscular HGB Conc 34 g/dL (31-36); Mean Corpuscular Hemoglobin 31 pg (27-31); Mean Corpuscular Volume 91 fL (80-94); Platelet Count 243 10^3/uL (150-450); Red Cell Distribution Width 13 % (10-15); White Blood Count 7.1 10^3/uL (3.5-10.8)
[2022-05-28 06:27] LABS: Calcium 9.1 mg/dL (8.6-10.3); Potassium 4.4 mmol/L (3.5-5.0); eGFR CKD-EPI 87.5 (>60)
[2022-05-28] MEDS: Aspirin EC 81 mg TAB.EC (enteric coated) PO SCH (11:07)
[2022-05-29 05:52] LABS: ABS Lymphocytes 0.6 10^3/ul (1.0-4.8); ABS Monocytes 0.4 10^3/ul (0-0.8); ABS Neutrophils 9.4 10^3/ul (1.5-7.7); Hematocrit 40 % (42-52); Hemoglobin 14.1 g/dL (14.0-18.0); Lymphocyte % 6.1 %; Mean Corpuscular HGB Conc 35 g/dL (31-36); Mean Corpuscular Hemoglobin 32 pg (27-31); Mean Corpuscular Volume 90 fL (80-94); Mean Platelet Volume 9.2 fL (7.4-10.4); Platelet Count 254 10^3/uL (150-450); Red Blood Count 4.42 10^6 /uL (4.18-5.48); Red Cell Distribution Width 13 % (10-15); White Blood Count 10.4 10^3/uL (3.5-10.8)
[2022-05-29 06:14] LABS: Calcium 9.3 mg/dL (8.6-10.3); Potassium 4.5 mmol/L (3.5-5.0); eGFR CKD-EPI 87.8 (>60)
[2022-05-29] MEDS: Aspirin EC 81 mg TAB.EC (enteric coated) PO SCH (08:19)
[2022-05-29 16:14] VITALS: BP 135/65
== END 2022-05-29 16:50 | disposition home or self-care (01) | DRG 181 ==
LOC: EDHOLD 13:21 → ED 13:21 → SUATTDRO 16:06 → MEDTELE 05-27 01:02
PROVIDERS: ADMIT Internal Medicine; ATTEND Internal Medicine

== ENCOUNTER 2022-06-11 10:35 | Inpatient (IN) ==
[2022-06-11 12:46] LABS: Hematocrit 50 % (42-52); Hemoglobin 16.7 g/dL (14.0-18.0); Mean Corpuscular HGB Conc 33 g/dL (31-36); Mean Corpuscular Hemoglobin 31 pg (27-31); Mean Corpuscular Volume 91 fL (80-94); Mean Platelet Volume 8.9 fL (7.4-10.4); Platelet Count 239 10^3/uL (150-450); Red Blood Count 5.48 10^6 /uL (4.18-5.48); Red Cell Distribution Width 14 % (10-15); White Blood Count 20.5 10^3/uL (3.5-10.8)
[2022-06-11 12:51] LABS: Urine Color Yellow
[2022-06-11 12:52] LABS: Urine Appearance Clear; Urine Bilirubin Negative (Negative); Urine Blood Negative (Negative); Urine Glucose Negative (Negative); Urine Ketones Negative (Negative); Urine Nitrite Negative (Negative); Urine Protein Negative (Negative); Urine Urobilinogen 1.0 (Negative) (Negative)
[2022-06-11 13:00] LABS: Urine Bacteria Absent (Absent); Urine Red Blood Cell Trace(0-2/hpf) (Absent); Urine White Blood Cell Trace(0-5/hpf) (Absent)
[2022-06-11] MEDS: NS 0.9% 1000 ml BAG 1,000 ML IV SCH ×2 (13:10→22:08)
[2022-06-11 13:21] LABS: Albumin 3.6 g/dL (3.2-5.2); Albumin/Globulin Ratio 1.3 (1-3); Calcium 9.7 mg/dL (8.6-10.3); Globulin 2.7 g/dL (2-4); Magnesium 2.4 mg/dL (1.9-2.7); Potassium 3.9 mmol/L (3.5-5.0); Total Bilirubin 1.6 mg/dL (0.2-1.0); Total Protein 6.3 g/dL (6.4-8.9); eGFR CKD-EPI 64.1 (>60)
[2022-06-11] MEDS ORDERED: Iohexol 350 (CONTRAST) 500 ML MDV IV ONE (13:27)
[2022-06-11 13:32] LABS: ABS Eosinophils 0.1 10^3/ul (0-0.6); ABS Lymphocytes 0.7 10^3/ul (1.0-4.8); ABS Monocytes 0.7 10^3/ul (0-0.8); ABS Neutrophils 18.9 10^3/ul (1.5-7.7); Eosinophil % 0.5 %; Lymphocyte % 3.6 %
[2022-06-11 14:01] LABS: High Sensitivity Troponin 1 Hr 10 pg/mL (<20)
[2022-06-11] MEDS ORDERED: Heparin DRIP 25,000 UNITS BAG 25,000 UNITS/500 ML BAG IV SCH (15:00)
[2022-06-11] MEDS ORDERED: Al Hydrox/Mg Hydrox/Simet LIQ 30 ML UDC PO PRN (15:23)
[2022-06-11] MEDS ORDERED: Ondansetron 4 mg VIAL 2 MG/ML 2 ml VIAL IV PRN (15:23)
[2022-06-11] MEDS ORDERED: Albuterol HFA INHALER 8 gm MDI INH PRN (15:27)
[2022-06-11] MEDS ORDERED: Heparin 5000 UNITS/ML 1 mL VIAL ONE (16:21)
[2022-06-11] MEDS ORDERED: Heparin 5000 UNITS/ML 1 mL VIAL IV ONE (17:09)
[2022-06-12 03:26] LABS: ABS Lymphocytes 0.5 10^3/ul (1.0-4.8); ABS Monocytes 0.2 10^3/ul (0-0.8); ABS Neutrophils 15.2 10^3/ul (1.5-7.7); Hematocrit 44 % (42-52); Hemoglobin 14.3 g/dL (14.0-18.0); Lymphocyte % 3.2 %; Mean Corpuscular HGB Conc 33 g/dL (31-36); Mean Corpuscular Hemoglobin 30 pg (27-31); Mean Corpuscular Volume 91 fL (80-94); Mean Platelet Volume 8.6 fL (7.4-10.4); Platelet Count 196 10^3/uL (150-450); Red Blood Count 4.81 10^6 /uL (4.18-5.48); Red Cell Distribution Width 13 % (10-15)
[2022-06-12] MEDS: NS 0.9% 1000 ml BAG 1,000 ML IV SCH (05:08)
[2022-06-12 07:55] LABS: Albumin/Globulin Ratio 1.4 (1-3); Calcium 8.7 mg/dL (8.6-10.3); Globulin 2.1 g/dL (2-4); Potassium 4.5 mmol/L (3.5-5.0); Total Bilirubin 0.8 mg/dL (0.2-1.0); Total Protein 5.1 g/dL (6.4-8.9); eGFR CKD-EPI 82.5 (>60)
[2022-06-12] MEDS: Enoxaparin 100 MG/ML SYR SUBCUT SCH ×2 (11:15→22:06)
[2022-06-12] MEDS ORDERED: PALONOSETRON HCL IVPB SCH (13:45)
[2022-06-12] MEDS ORDERED: APREPITANT 130 MG in Premix IV 0 ML IVPB SCH (13:50)
[2022-06-12] MEDS ORDERED: CARBOPLATIN IVPB SCH (14:00)
[2022-06-12] MEDS ORDERED: NS 0.9% IVPB SCH (14:00)
[2022-06-12] MEDS: NS 0.9% IVPB SCH (14:44)
[2022-06-12] MEDS: ETOPOSIDE IVPB SCH (14:44)
[2022-06-13 05:28] LABS: ABS Lymphocytes 0.4 10^3/ul (1.0-4.8); ABS Monocytes 0.3 10^3/ul (0-0.8); ABS Neutrophils 16.3 10^3/ul (1.5-7.7); Hematocrit 41 % (42-52); Hemoglobin 13.9 g/dL (14.0-18.0); Lymphocyte % 2.4 %; Mean Corpuscular HGB Conc 34 g/dL (31-36); Mean Corpuscular Hemoglobin 31 pg (27-31); Mean Corpuscular Volume 90 fL (80-94); Mean Platelet Volume 8.5 fL (7.4-10.4); Platelet Count 194 10^3/uL (150-450); Red Blood Count 4.51 10^6 /uL (4.18-5.48); Red Cell Distribution Width 13 % (10-15)
[2022-06-13 06:18] LABS: Albumin 2.8 g/dL (3.2-5.2); Albumin/Globulin Ratio 1.3 (1-3); Calcium 8.5 mg/dL (8.6-10.3); Globulin 2.1 g/dL (2-4); Magnesium 2.2 mg/dL (1.9-2.7); Potassium 4.6 mmol/L (3.5-5.0); Total Bilirubin 1.1 mg/dL (0.2-1.0); Total Protein 4.9 g/dL (6.4-8.9); eGFR CKD-EPI 91.1 (>60)
[2022-06-13] MEDS: Enoxaparin 100 MG/ML SYR SUBCUT SCH ×2 (08:11→20:18)
[2022-06-13] MEDS: NS 0.9% IVPB SCH (15:14)
[2022-06-13] MEDS: ETOPOSIDE IVPB SCH (15:14)
[2022-06-14 05:25] LABS: ABS Lymphocytes 0.3 10^3/ul (1.0-4.8); ABS Monocytes 0.4 10^3/ul (0-0.8); ABS Neutrophils 13.9 10^3/ul (1.5-7.7); Hematocrit 40 % (42-52); Hemoglobin 13.4 g/dL (14.0-18.0); Mean Corpuscular HGB Conc 34 g/dL (31-36); Mean Corpuscular Hemoglobin 31 pg (27-31); Mean Corpuscular Volume 90 fL (80-94); Mean Platelet Volume 8.9 fL (7.4-10.4); Platelet Count 191 10^3/uL (150-450); Red Cell Distribution Width 13 % (10-15); White Blood Count 14.6 10^3/uL (3.5-10.8)
[2022-06-14 05:45] LABS: Calcium 8.8 mg/dL (8.6-10.3); Magnesium 2.2 mg/dL (1.9-2.7); Potassium 4.5 mmol/L (3.5-5.0); eGFR CKD-EPI 91.1 (>60)
[2022-06-14] MEDS: Enoxaparin 100 MG/ML SYR SUBCUT SCH (09:03)
[2022-06-14] MEDS: NS 0.9% IVPB SCH (14:42)
[2022-06-14] MEDS: ETOPOSIDE IVPB SCH (14:42)
[2022-06-15 05:28] LABS: ABS Lymphocytes 0.3 10^3/ul (1.0-4.8); ABS Monocytes 0.3 10^3/ul (0-0.8); ABS Neutrophils 9.1 10^3/ul (1.5-7.7); Hematocrit 40 % (42-52); Hemoglobin 13.3 g/dL (14.0-18.0); Lymphocyte % 3.2 %; Mean Corpuscular HGB Conc 33 g/dL (31-36); Mean Corpuscular Hemoglobin 30 pg (27-31); Mean Corpuscular Volume 90 fL (80-94); Mean Platelet Volume 8.7 fL (7.4-10.4); Platelet Count 180 10^3/uL (150-450); Red Blood Count 4.41 10^6 /uL (4.18-5.48); Red Cell Distribution Width 13 % (10-15); White Blood Count 9.7 10^3/uL (3.5-10.8)
[2022-06-15 06:03] LABS: Calcium 8.8 mg/dL (8.6-10.3); Magnesium 2.2 mg/dL (1.9-2.7); eGFR CKD-EPI 91.4 (>60)
[2022-06-15 06:05] LABS: Potassium 5.3 mmol/L (3.5-5.0)
[2022-06-15 07:38] VITALS: BP 139/78
== END 2022-06-15 11:40 | disposition home or self-care (01) | DRG 176 ==
LOC: ED 10:35 → SUATTDRO 15:24 → EDHOLD 15:24 → MED 20:11
PROVIDERS: ADMIT Pediatrics; ATTEND Student in an Organized Health Care Education/Training Program

== ENCOUNTER 2022-06-23 10:07 | Inpatient (IN) ==
[2022-06-23] MEDS ORDERED: Cefepime 2 GM in Dextrose 2 GM/50 ML BAG IV ONE (10:14)
[2022-06-23] MEDS ORDERED: Hydrocortisone INJ 100 MG/2ML 2 ML VIAL IV ONE (10:21)
[2022-06-23] MEDS ORDERED: Albuterol/Ipratropium NEB.SOL (2.5/0.5 MG) 3 ML NEB.SOLN INH ONE ×2 (10:34)
[2022-06-23] MEDS ORDERED: Albuterol/Ipratropium NEB.SOL (2.5/0.5 MG) 3 ML NEB.SOLN ONE (10:35)
[2022-06-23 10:39] LABS: PO2 Arterial 155 mmHg (80-100)
[2022-06-23 10:46] LABS: PCO2 Arterial <20 mmHg (35-45)
[2022-06-23] MEDS ORDERED: NORMOSOL-R pH 7.4 1000 mL BAG 1,000 ML IV SCH ×2 (11:00)
[2022-06-23 11:06] LABS: ABS Lymphocytes 0.3 10^3/ul (1.0-4.8); ABS Monocytes 0.1 10^3/ul (0-0.8); Hematocrit 37 % (42-52); Hemoglobin 11.9 g/dL (14.0-18.0); Lymphocyte % 83.7 %; Mean Corpuscular HGB Conc 33 g/dL (31-36); Mean Corpuscular Hemoglobin 30 pg (27-31); Mean Corpuscular Volume 91 fL (80-94); Mean Platelet Volume 8.7 fL (7.4-10.4); Nucleated Red Blood Cells % 0.6; Platelet Count 26 10^3/uL (150-450); Red Blood Count 4.01 10^6 /uL (4.18-5.48); Red Cell Distribution Width 13 % (10-15); White Blood Count 0.4 10^3/uL (3.5-10.8)
[2022-06-23 11:10] LABS: Activated Partial Thrombo Time 28.8 seconds (26.0-38.0); INR 1.94 (0.89-1.11)
[2022-06-23] MEDS ORDERED: Amikacin IV 500 MG/2 ML VIAL IVPB ONE (11:30)
[2022-06-23] MEDS ORDERED: Vancomycin 1,500 MG in NS 0.9% 250 ml 250 ML IVPB ONE (11:31)
[2022-06-23 11:50] LABS: Urine Appearance Clear; Urine Bilirubin Negative (Negative); Urine Blood Trace (Lysed) (Negative); Urine Color Amber; Urine Glucose Negative (Negative); Urine Ketones Negative (Negative); Urine Protein 1+ (30 mg/dL) (Negative); Urine pH 5.5 (5.0-9.0)
[2022-06-23 11:50] LABS: High Sensitivity Troponin 1 Hr 16 pg/mL (<20)
[2022-06-23 11:51] LABS: Urine Nitrite Negative (Negative)
[2022-06-23 11:59] LABS: Urine Bacteria Absent (Absent); Urine Red Blood Cell Trace(0-2/hpf) (Absent); Urine White Blood Cell Trace(0-5/hpf) (Absent)
[2022-06-23 12:00] LABS: Albumin 2.7 g/dL (3.2-5.2); Albumin/Globulin Ratio 1.1 (1-3); C Reactive Protein 324.9 mg/L (<8.01); Calcium 8.5 mg/dL (8.6-10.3); Globulin 2.5 g/dL (2-4); Potassium 4.5 mmol/L (3.5-5.0); Total Bilirubin 0.9 mg/dL (0.2-1.0); Total Protein 5.2 g/dL (6.4-8.9)
[2022-06-23] MEDS ORDERED: Acetaminophen IV 1 GM/100ML 1,000 MG/100 ML BAG IV PRN (12:28)
[2022-06-23] MEDS ORDERED: Remdesivir 100 mg Vial 200 MG in NS 0.9% 250 ml 210 ML IV ONE (12:30)
[2022-06-23] MEDS ORDERED: Acetaminophen IV 1 GM/100ML 1,000 MG/100 ML BAG IV ONE (12:30)
[2022-06-23] MEDS ORDERED: AMIKACIN IVPB ONE (13:00)
[2022-06-23] MEDS ORDERED: NS 0.9% IVPB ONE (13:00)
[2022-06-23] MEDS ORDERED: Vancomycin per Pharmacy 1 EA NOTE FOLLOW UP SCH (13:00)
[2022-06-23] MEDS ORDERED: Albuterol HFA INHALER 8 gm MDI INH PRN (13:09)
[2022-06-23] MEDS ORDERED: Phenylephrine IV 10 MG/ML 1 ml VIAL ONE (14:00)
[2022-06-23] MEDS ORDERED: Lactated Ringers 1000 ml BAG 1,000 ML IV SCH (14:00)
[2022-06-23] MEDS ORDERED: Phenylephrine DRIP 0.2 MG/ML in NS 0.9% 250 ML (IVPREMIX) IV SCH (14:15)
[2022-06-23 14:18] LABS: INR 1.89 (0.89-1.11)
[2022-06-23] MEDS: Cefepime 2 GM in Dextrose 2 GM/50 ML BAG IV SCH ×2 (14:23→21:33)
[2022-06-23 15:25] LABS: ALT 24 U/L (7-52); AST 10 U/L (13-39); Albumin 2.4 g/dL (3.2-5.2); Albumin/Globulin Ratio 1.1 (1-3); Alkaline Phosphatase 58 U/L (35-149); Blood Urea Nitrogen 25 mg/dL (6-24); CO2 Carbon Dioxide 19 mmol/L (22-32); Calcium 8.1 mg/dL (8.6-10.3); Globulin 2.1 g/dL (2-4); Glucose 134 mg/dL (70-100); Potassium 3.7 mmol/L (3.5-5.0); Total Protein 4.5 g/dL (6.4-8.9); eGFR CKD-EPI 75.2 (>60)
[2022-06-23 15:37] LABS: Anion Gap 14 mmol/L (2-11); Chloride 115 mmol/L (101-111); Sodium 148 mmol/L (135-145)
[2022-06-23] MEDS ORDERED: PHENYLEPHRINE DRIP IVPREMIX 50 MG/250 ML BAG IV SCH ×2 (17:20→23:03)
[2022-06-23] MEDS: Hydrocortisone INJ 100 MG/2ML 2 ML VIAL IV SCH (17:56)
[2022-06-24 00:20] LABS: Magnesium 2.1 mg/dL (1.9-2.7)
[2022-06-24 00:28] LABS: Phosphorus < 1.0 mg/dL (2.5-5.0)
[2022-06-24] MEDS ORDERED: Potassium Phosphate IV 15 MMOLE in NS 0.9% 250 ml 250 ML IVPB ONE (01:00)
[2022-06-24] MEDS: Hydrocortisone INJ 100 MG/2ML 2 ML VIAL IV SCH ×3 (02:02→17:44)
[2022-06-24] MEDS: Magic MouthWash2-BEN/MAAL/LIDO/NYST 240 ML BTL (alt formulation) SWISH SPIT SCH ×5 (02:35→22:59)
[2022-06-24] MEDS: Cefepime 2 GM in Dextrose 2 GM/50 ML BAG IV SCH ×3 (04:38→20:15)
[2022-06-24 06:29] LABS: INR 2.02 (0.89-1.11)
[2022-06-24 06:32] LABS: Hematocrit 32 % (42-52); Hemoglobin 10.8 g/dL (14.0-18.0); Mean Corpuscular HGB Conc 34 g/dL (31-36); Mean Corpuscular Hemoglobin 31 pg (27-31); Mean Corpuscular Volume 90 fL (80-94); Mean Platelet Volume 9.2 fL (7.4-10.4); Platelet Count 32 10^3/uL (150-450); Red Blood Count 3.49 10^6 /uL (4.18-5.48); Red Cell Distribution Width 13 % (10-15); White Blood Count 0.5 10^3/uL (3.5-10.8)
[2022-06-24 06:40] LABS: Albumin 2.4 g/dL (3.2-5.2); Albumin/Globulin Ratio 1.1 (1-3); Calcium 8.2 mg/dL (8.6-10.3); Globulin 2.2 g/dL (2-4); Magnesium 2.2 mg/dL (1.9-2.7); Phosphorus 3.8 mg/dL (2.5-5.0); Potassium 3.7 mmol/L (3.5-5.0); Total Bilirubin 0.8 mg/dL (0.2-1.0); Total Protein 4.6 g/dL (6.4-8.9)
[2022-06-24] MEDS: Vancomycin 1,500 MG in NS 0.9% 250 ml 250 ML IVPB SCH (11:54)
[2022-06-24] MEDS: Remdesivir 100 mg Vial 100 MG in NS 0.9% 250 ml 230 ML IV SCH (20:14)
[2022-06-25] MEDS: Hydrocortisone INJ 100 MG/2ML 2 ML VIAL IV SCH ×3 (02:00→21:31)
[2022-06-25] MEDS: Cefepime 2 GM in Dextrose 2 GM/50 ML BAG IV SCH ×3 (04:30→21:31)
[2022-06-25 04:57] LABS: Hematocrit 33 % (42-52); Hemoglobin 11.1 g/dL (14.0-18.0); Mean Corpuscular HGB Conc 34 g/dL (31-36); Mean Corpuscular Hemoglobin 31 pg (27-31); Mean Corpuscular Volume 90 fL (80-94); Mean Platelet Volume 9.1 fL (7.4-10.4); Platelet Count 50 10^3/uL (150-450); Red Blood Count 3.63 10^6 /uL (4.18-5.48); Red Cell Distribution Width 13 % (10-15); White Blood Count 3.2 10^3/uL (3.5-10.8)
[2022-06-25 04:59] LABS: INR 2.97 (0.89-1.11)
[2022-06-25 05:33] LABS: Albumin 2.4 g/dL (3.2-5.2); Calcium 8.5 mg/dL (8.6-10.3); Globulin 2.3 g/dL (2-4); Magnesium 2.4 mg/dL (1.9-2.7); Phosphorus 2.7 mg/dL (2.5-5.0); Potassium 3.4 mmol/L (3.5-5.0); Total Bilirubin 0.9 mg/dL (0.2-1.0); Total Protein 4.7 g/dL (6.4-8.9); eGFR CKD-EPI 86.3 (>60)
[2022-06-25 05:36] LABS: ABS Lymphocytes 0.4 10^3/ul (1.0-4.8); ABS Monocytes 0.1 10^3/ul (0-0.8); ABS Neutrophils 2.6 10^3/ul (1.5-7.7); Eosinophil % 0.1 %; Lymphocyte % 13.2 %; Nucleated Red Blood Cells % 0.2; RBC Morphology Normal (Normal)
[2022-06-25] MEDS: D5W 1000 ml BAG 1,000 ML IV SCH (06:34)
[2022-06-25] MEDS: KCL 20 MEQ/100 ML IVPREMIX 20 MEQ/100 ML BAG IV SCH ×4 (06:34→21:32)
[2022-06-25] MEDS ORDERED: Furosemide 40 mg/4 ml IV VIAL IV ONE (08:17)
[2022-06-25] MEDS: Magic MouthWash2-BEN/MAAL/LIDO/NYST 240 ML BTL (alt formulation) SWISH SPIT SCH ×4 (09:03→23:03)
[2022-06-25] MEDS: Vancomycin 1,500 MG in NS 0.9% 250 ml 250 ML IVPB SCH (11:31)
[2022-06-25 15:20] LABS: Potassium 3.3 mmol/L (3.5-5.0)
[2022-06-25] MEDS: Remdesivir 100 mg Vial 100 MG in NS 0.9% 250 ml 230 ML IV SCH (21:31)
[2022-06-26] MEDS: D5W 1000 ml BAG 1,000 ML IV SCH ×4 (02:39→21:51)
[2022-06-26] MEDS: Cefepime 2 GM in Dextrose 2 GM/50 ML BAG IV SCH (05:33)
[2022-06-26 06:10] LABS: INR 2.41 (0.89-1.11)
[2022-06-26 06:40] LABS: Hematocrit 34 % (42-52); Hemoglobin 11.3 g/dL (14.0-18.0); Mean Corpuscular HGB Conc 33 g/dL (31-36); Mean Corpuscular Hemoglobin 30 pg (27-31); Mean Corpuscular Volume 91 fL (80-94); Mean Platelet Volume 10.2 fL (7.4-10.4); Platelet Count 70 10^3/uL (150-450); Red Blood Count 3.74 10^6 /uL (4.18-5.48); Red Cell Distribution Width 14 % (10-15); White Blood Count 9.1 10^3/uL (3.5-10.8)
[2022-06-26 06:47] LABS: Polychromasia 1+; Toxic Granulation 1+
[2022-06-26 06:49] LABS: ABS Lymphocytes 1.1 10^3/ul (1.0-4.8); ABS Monocytes 0.4 10^3/ul (0-0.8); ABS Neutrophils 7.6 10^3/ul (1.5-7.7); Lymphocyte % 11.7 %; Nucleated Red Blood Cells % 0.2
[2022-06-26 06:55] LABS: Albumin 2.1 g/dL (3.2-5.2); Albumin/Globulin Ratio 0.7 (1-3); Calcium 8.8 mg/dL (8.6-10.3); Globulin 2.9 g/dL (2-4); Magnesium 2.5 mg/dL (1.9-2.7); Potassium 4.3 mmol/L (3.5-5.0); Total Bilirubin 0.6 mg/dL (0.2-1.0); eGFR CKD-EPI 56.1 (>60)
[2022-06-26] MEDS ORDERED: D5W 1000 ml BAG 1,000 ML IV SCH (07:14)
[2022-06-26] MEDS: Hydrocortisone INJ 100 MG/2ML 2 ML VIAL IV SCH (08:33)
[2022-06-26] MEDS: Magic MouthWash2-BEN/MAAL/LIDO/NYST 240 ML BTL (alt formulation) SWISH SPIT SCH ×4 (08:34→20:21)
[2022-06-26] MEDS ORDERED: Vancomycin Trough Check NOTE FOLLOW UP ONE (10:30)
[2022-06-26] MEDS: Acetaminophen IV 1 GM/100ML 1,000 MG/100 ML BAG IV PRN ×2 (12:45→21:50)
[2022-06-26] MEDS: Pantoprazole VIAL 40 MG VIAL IV SCH (12:54)
[2022-06-26] MEDS: Enoxaparin 100 MG/ML SYR SUBCUT SCH (13:00)
[2022-06-26] MEDS: Fluconazole 400 MG IVPREMIX 400 MG/200 ML BAG IVPB SCH (13:28)
[2022-06-26 16:16] LABS: Calcium 8.5 mg/dL (8.6-10.3); Potassium 3.7 mmol/L (3.5-5.0); eGFR CKD-EPI 54.5 (>60)
[2022-06-26] MEDS ORDERED: Alteplase (CATHFLO) 2 MG VIAL IV ONE (18:23)
[2022-06-26] MEDS: Remdesivir 100 mg Vial 100 MG in NS 0.9% 250 ml 230 ML IV SCH (20:12)
[2022-06-26] MEDS: Dexamethasone IV 4 MG/ML VIAL 1 ml VIAL IV SLOW PU SCH (20:19)
[2022-06-27] MEDS: Enoxaparin 100 MG/ML SYR SUBCUT SCH ×3 (01:27→12:04)
[2022-06-27] MEDS: D5W 1000 ml BAG 1,000 ML IV SCH ×3 (04:54→17:25)
[2022-06-27 06:13] LABS: INR 2.21 (0.89-1.11)
[2022-06-27 06:16] LABS: Hematocrit 30 % (42-52); Mean Corpuscular HGB Conc 33 g/dL (31-36); Mean Corpuscular Hemoglobin 30 pg (27-31); Mean Corpuscular Volume 90 fL (80-94); Mean Platelet Volume 10.6 fL (7.4-10.4); Platelet Count 84 10^3/uL (150-450); Red Blood Count 3.39 10^6 /uL (4.18-5.48); Red Cell Distribution Width 14 % (10-15); White Blood Count 10.5 10^3/uL (3.5-10.8)
[2022-06-27 06:38] LABS: Polychromasia 1+; Toxic Granulation 1+
[2022-06-27 06:39] LABS: ABS Lymphocytes 1.1 10^3/ul (1.0-4.8); ABS Monocytes 0.3 10^3/ul (0-0.8); Lymphocyte % 10.9 %; Nucleated Red Blood Cells % 0.2
[2022-06-27 06:49] LABS: Albumin 1.9 g/dL (3.2-5.2); Albumin/Globulin Ratio 0.7 (1-3); Calcium 8.2 mg/dL (8.6-10.3); Globulin 2.7 g/dL (2-4); Potassium 3.9 mmol/L (3.5-5.0); Total Bilirubin 0.4 mg/dL (0.2-1.0); Total Protein 4.6 g/dL (6.4-8.9); eGFR CKD-EPI 58.8 (>60)
[2022-06-27] MEDS: Acetaminophen IV 1 GM/100ML 1,000 MG/100 ML BAG IV PRN (08:09)
[2022-06-27] MEDS: Dexamethasone IV 4 MG/ML VIAL 1 ml VIAL IV SLOW PU SCH ×2 (08:20→20:48)
[2022-06-27] MEDS: Pantoprazole VIAL 40 MG VIAL IV SCH (08:20)
[2022-06-27] MEDS: Magic MouthWash2-BEN/MAAL/LIDO/NYST 240 ML BTL (alt formulation) SWISH SPIT SCH ×4 (08:24→20:49)
[2022-06-27] MEDS: Dexamethasone 0.1 MG/ML ORALSYR PO SCH ×3 (12:04→20:48)
[2022-06-27] MEDS: Acyclovir IV 500 MG in NS 0.9% 100 ml BAG 100 ML IVPB SCH ×2 (12:50→21:40)
[2022-06-27] MEDS: Fluconazole 400 MG IVPREMIX 400 MG/200 ML BAG IVPB SCH (13:07)
[2022-06-27] MEDS: Nystatin SUSPENSION 100,000 UNITS/ML UDC SWISH SWAL SCH ×3 (14:02→20:48)
[2022-06-27] MEDS ORDERED: TPN 24 HR with Dextrose 50% Water 500 ML, Amino Acid Infusion 10% 850 ML, Sterile Water... CENT\\PICC SCH (17:00)
[2022-06-27] MEDS ORDERED: Dextrose 50% Syringe 50 ml 25 GM/50 ML SYRINGE IV PUSH PRN (18:13)
[2022-06-27 19:25] LABS: Calcium 7.8 mg/dL (8.6-10.3); Potassium 3.7 mmol/L (3.5-5.0); eGFR CKD-EPI 67.1 (>60)
[2022-06-27] MEDS: Remdesivir 100 mg Vial 100 MG in NS 0.9% 250 ml 230 ML IV SCH (23:09)
[2022-06-28] MEDS: Enoxaparin 100 MG/ML SYR SUBCUT SCH ×2 (00:28→12:54)
[2022-06-28 04:29] LABS: INR 1.8 (0.89-1.11)
[2022-06-28] MEDS: Acyclovir IV 500 MG in NS 0.9% 100 ml BAG 100 ML IVPB SCH ×3 (04:31→21:00)
[2022-06-28 04:44] LABS: Albumin 1.8 g/dL (3.2-5.2); Albumin/Globulin Ratio 0.8 (1-3); Calcium 8.1 mg/dL (8.6-10.3); Globulin 2.4 g/dL (2-4); Hematocrit 29 % (42-52); Hemoglobin 9.7 g/dL (14.0-18.0); Magnesium 2.2 mg/dL (1.9-2.7); Mean Corpuscular HGB Conc 34 g/dL (31-36); Mean Corpuscular Hemoglobin 30 pg (27-31); Mean Corpuscular Volume 90 fL (80-94); Phosphorus 3.4 mg/dL (2.5-5.0); Platelet Count 94 10^3/uL (150-450); Potassium 3.9 mmol/L (3.5-5.0); Red Cell Distribution Width 13 % (10-15); Total Bilirubin 0.5 mg/dL (0.2-1.0); Total Protein 4.2 g/dL (6.4-8.9); White Blood Count 9.9 10^3/uL (3.5-10.8); eGFR CKD-EPI 70.2 (>60)
[2022-06-28] MEDS ORDERED: .Amiodarone 24HR ONLY IV Protocol Order Note IV ONE (05:19)
[2022-06-28] MEDS ORDERED: Amiodarone 150 mg IVPREMIX 150 MG/100 ML BAG IV ONE (05:19)
[2022-06-28] MEDS ORDERED: Amiodarone 360 MG IVPREMIX 360 MG/200 ML BAG IV SCH (05:35)
[2022-06-28] MEDS: KCL 20 MEQ/100 ML IVPREMIX 20 MEQ/100 ML BAG IV SCH ×2 (06:04→08:36)
[2022-06-28 07:57] LABS: Acanthocytes 1+; Anisocytosis 1+
[2022-06-28 07:58] LABS: ABS Lymphocytes 0.7 10^3/ul (1.0-4.8); ABS Monocytes 0.3 10^3/ul (0-0.8); Burr Cells 1+; Eosinophil % 0.1 %; Lymphocyte % 6.5 %; Nucleated Red Blood Cells % 0.1
[2022-06-28] MEDS: Pantoprazole VIAL 40 MG VIAL IV SCH (08:50)
[2022-06-28] MEDS: Dexamethasone IV 4 MG/ML VIAL 1 ml VIAL IV SLOW PU SCH ×2 (08:50→20:45)
[2022-06-28] MEDS: Dexamethasone 0.1 MG/ML ORALSYR PO SCH ×4 (08:50→21:00)
[2022-06-28] MEDS: Magic MouthWash2-BEN/MAAL/LIDO/NYST 240 ML BTL (alt formulation) SWISH SPIT SCH ×4 (08:51→20:45)
[2022-06-28 10:42] LABS: Direct Bilirubin 0.1 mg/dL (0.03-0.18); Indirect Bilirubin 0.4 mg/dL (0.3-1.0); Total Bilirubin 0.5 mg/dL (0.2-1.0)
[2022-06-28 10:47] LABS: Albumin/Globulin Ratio 0.8 (1-3); Globulin 2.5 g/dL (2-4); Total Protein 4.5 g/dL (6.4-8.9)
[2022-06-28] MEDS: Amiodarone 360 MG IVPREMIX 360 MG/200 ML BAG IV SCH ×2 (12:01→22:56)
[2022-06-28] MEDS: Anidulafungin 100 MG in NS 0.9% 100 ml BAG 100 ML IVPB SCH (12:03)
[2022-06-28] MEDS ORDERED: TPN 24 HR with Dextrose 50% Water 500 ML, Amino Acid Infusion 10% 850 ML, Sterile Water... CENT\\PICC SCH (17:01)
[2022-06-29] MEDS: Enoxaparin 100 MG/ML SYR SUBCUT SCH ×2 (01:06→12:50)
[2022-06-29] MEDS: Acyclovir IV 500 MG in NS 0.9% 100 ml BAG 100 ML IVPB SCH ×3 (04:44→20:56)
[2022-06-29 04:46] LABS: Hematocrit 32 % (42-52); Hemoglobin 10.6 g/dL (14.0-18.0); Mean Corpuscular HGB Conc 33 g/dL (31-36); Mean Corpuscular Hemoglobin 29 pg (27-31); Mean Corpuscular Volume 89 fL (80-94); Mean Platelet Volume 10.6 fL (7.4-10.4); Platelet Count 137 10^3/uL (150-450); Red Blood Count 3.61 10^6 /uL (4.18-5.48); Red Cell Distribution Width 13 % (10-15)
[2022-06-29 04:47] LABS: ABS Eosinophils 0.1 10^3/ul (0-0.6); ABS Lymphocytes 0.7 10^3/ul (1.0-4.8); ABS Monocytes 0.5 10^3/ul (0-0.8); ABS Neutrophils 11.7 10^3/ul (1.5-7.7); Eosinophil % 1.1 %; Nucleated Red Blood Cells % 0.1
[2022-06-29 04:48] LABS: INR 1.31 (0.89-1.11)
[2022-06-29 05:19] LABS: Albumin 2.1 g/dL (3.2-5.2); Albumin/Globulin Ratio 0.8 (1-3); Calcium 8.9 mg/dL (8.6-10.3); Direct Bilirubin 0.2 mg/dL (0.03-0.18); Globulin 2.7 g/dL (2-4); Indirect Bilirubin 0.3 mg/dL (0.3-1.0); Magnesium 2.2 mg/dL (1.9-2.7); Potassium 4.4 mmol/L (3.5-5.0); Total Bilirubin 0.5 mg/dL (0.2-1.0); Total Protein 4.8 g/dL (6.4-8.9); eGFR CKD-EPI 72.6 (>60)
[2022-06-29] MEDS: Magic MouthWash2-BEN/MAAL/LIDO/NYST 240 ML BTL (alt formulation) SWISH SPIT SCH ×4 (08:12→20:23)
[2022-06-29] MEDS: Dexamethasone 0.1 MG/ML ORALSYR PO SCH ×4 (08:12→20:24)
[2022-06-29] MEDS: Pantoprazole VIAL 40 MG VIAL IV SCH (08:12)
[2022-06-29] MEDS: Dexamethasone IV 4 MG/ML VIAL 1 ml VIAL IV SLOW PU SCH ×2 (08:12→20:24)
[2022-06-29] MEDS: Anidulafungin 100 MG in NS 0.9% 100 ml BAG 100 ML IVPB SCH (11:37)
[2022-06-29] MEDS: TPN CENTRAL STANDARD BASE A CENT\\PICC SCH (17:40)
[2022-06-30] MEDS: Enoxaparin 100 MG/ML SYR SUBCUT SCH ×2 (00:19→11:31)
[2022-06-30] MEDS: Acetaminophen IV 1 GM/100ML 1,000 MG/100 ML BAG IV PRN ×3 (02:18→20:12)
[2022-06-30] MEDS: Acyclovir IV 500 MG in NS 0.9% 100 ml BAG 100 ML IVPB SCH ×3 (04:09→20:59)
[2022-06-30 04:50] LABS: Hematocrit 31 % (42-52); Mean Corpuscular HGB Conc 32 g/dL (31-36); Mean Corpuscular Hemoglobin 29 pg (27-31); Mean Corpuscular Volume 90 fL (80-94); Mean Platelet Volume 10.5 fL (7.4-10.4); Platelet Count 188 10^3/uL (150-450); Red Blood Count 3.45 10^6 /uL (4.18-5.48); Red Cell Distribution Width 13 % (10-15); White Blood Count 17.2 10^3/uL (3.5-10.8)
[2022-06-30 04:59] LABS: INR 1.26 (0.89-1.11)
[2022-06-30 05:31] LABS: Albumin 2.1 g/dL (3.2-5.2); Albumin/Globulin Ratio 0.8 (1-3); Calcium 8.7 mg/dL (8.6-10.3); Globulin 2.6 g/dL (2-4); Potassium 4.3 mmol/L (3.5-5.0); Total Bilirubin 0.6 mg/dL (0.2-1.0); Total Protein 4.7 g/dL (6.4-8.9)
[2022-06-30] MEDS: Magic MouthWash2-BEN/MAAL/LIDO/NYST 240 ML BTL (alt formulation) SWISH SPIT SCH ×4 (07:45→21:00)
[2022-06-30] MEDS: Dexamethasone IV 4 MG/ML VIAL 1 ml VIAL IV SLOW PU SCH ×2 (07:45→20:19)
[2022-06-30] MEDS: Pantoprazole VIAL 40 MG VIAL IV SCH (07:45)
[2022-06-30] MEDS: Dexamethasone 0.1 MG/ML ORALSYR PO SCH ×4 (07:45→21:00)
[2022-06-30 09:25] LABS: ABS Lymphocytes 0.7 10^3/ul (1.0-4.8); ABS Monocytes 0.8 10^3/ul (0-0.8); ABS Neutrophils 15.7 10^3/ul (1.5-7.7); Lymphocyte % 4.2 %; RBC Morphology Normal (Normal)
[2022-06-30] MEDS: Anidulafungin 100 MG in NS 0.9% 100 ml BAG 100 ML IVPB SCH (10:09)
[2022-06-30] MEDS: Amiodarone IV 150 mg/3 ml VIAL SLOW PUSH SCH (11:31)
[2022-06-30] MEDS ORDERED: HYDROmorphone 0.5 MG/0.5 ML SYRINGE IV SLOW PU PRN (14:47)
[2022-06-30 16:31] LABS: Magnesium 2.1 mg/dL (1.9-2.7); Phosphorus 2.9 mg/dL (2.5-5.0)
[2022-06-30] MEDS: TPN CENTRAL STANDARD BASE A CENT\\PICC SCH (18:07)
[2022-06-30] MEDS ORDERED: HYDROmorphone 0.5 MG/0.5 ML SYRINGE IV SLOW PU ONE (20:56)
[2022-06-30] MEDS ORDERED: HYDROmorphone 0.5 MG/0.5 ML SYRINGE ONE (20:57)
[2022-06-30] MEDS: HYDROmorphone 0.5 MG/0.5 ML SYRINGE IV SLOW PU PRN (21:03)
[2022-07-01] MEDS: Enoxaparin 100 MG/ML SYR SUBCUT SCH (01:14)
[2022-07-01] MEDS: Lactated Ringers 500 ml BAG 500 ML IV ONE ×2 (01:23→01:28)
[2022-07-01] MEDS: HYDROmorphone 0.5 MG/0.5 ML SYRINGE IV SLOW PU PRN (02:52)
[2022-07-01] MEDS ORDERED: Lactated Ringers 500 ml BAG 500 ML IV ONE (03:14)
[2022-07-01 04:04] LABS: PO2 Arterial 154 mmHg (80-100)
[2022-07-01 04:10] LABS: PCO2 Arterial <20 mmHg (35-45)
[2022-07-01] MEDS ORDERED: Sodium Bicarbonate 8.4% SYR 50 ml SYRINGE IV ONE ×2 (04:12→05:17)
[2022-07-01] MEDS ORDERED: PHENYLEPHRINE DRIP IVPREMIX 50 MG/250 ML BAG IV ONE (04:14)
[2022-07-01] MEDS ORDERED: Sodium Bicarbonate 8.4% SYR 50 ml SYRINGE ONE ×2 (04:14→04:29)
[2022-07-01 04:15] LABS: Hematocrit 26 % (42-52); Hemoglobin 7.5 g/dL (14.0-18.0); Mean Corpuscular HGB Conc 29 g/dL (31-36); Mean Corpuscular Hemoglobin 28 pg (27-31); Mean Corpuscular Volume 96 fL (80-94); Mean Platelet Volume 11.4 fL (7.4-10.4); Platelet Count 260 10^3/uL (150-450); Red Blood Count 2.69 10^6 /uL (4.18-5.48); Red Cell Distribution Width 14 % (10-15); White Blood Count 46.5 10^3/uL (3.5-10.8)
[2022-07-01] MEDS: PHENYLEPHRINE DRIP IVPREMIX 50 MG/250 ML BAG IV SCH ×2 (04:15→07:52)
[2022-07-01] MEDS ORDERED: Sodium Bicarbonate 8.4% VIAL 1 MEQ/ML 50 ml VIAL (50 meq) IV ONE (04:27)
[2022-07-01] MEDS ORDERED: Norepinephrine 16MCG/ML BAGD5W 4,000 MCG/250 ML BAG IV ONE (05:03)
[2022-07-01] MEDS ORDERED: Lactated Ringers 1000 ml BAG 1,000 ML IV ONE (05:05)
[2022-07-01 05:08] LABS: Potassium 5.5 mmol/L (3.5-5.0); eGFR CKD-EPI 35.7 (>60)
[2022-07-01 05:09] LABS: Platelet Count 250 10^3/ul (150-450)
[2022-07-01] MEDS ORDERED: Hydrocortisone INJ 100 MG/2ML 2 ML VIAL IV ONE (05:10)
[2022-07-01] MEDS ORDERED: NS 0.9% IV ONE (05:24)
[2022-07-01] MEDS ORDERED: PROTAMINE SULFATE IV ONE (05:24)
[2022-07-01] MEDS ORDERED: Norepinephrine 16MCG/ML BAG NS 4,000 MCG/250 ML BAG IV SCH (06:00)
[2022-07-01 06:08] LABS: High Sensitivity Troponin 1 Hr 50 pg/mL (<20)
[2022-07-01 06:17] LABS: Activated Partial Thrombo Time 33.4 seconds (26.0-38.0); Fibrinogen 235.9 mg/dL (110.8-404.3); INR 1.59 (0.89-1.11)
[2022-07-01] MEDS ORDERED: Vancomycin 1,000 MG in NS 0.9% 250 ml 250 ML IVPB ONE (06:25)
[2022-07-01] MEDS ORDERED: Piperacillin/Tazobac ADVAN 3.375 GM in NS 0.9% 100 ml BAG 100 ML IV ONE (06:25)
[2022-07-01 06:38] LABS: ABS Basophils 0.3 10^3/ul (0-0.2); ABS Eosinophils 0.4 10^3/ul (0-0.6); ABS Lymphocytes 3.2 10^3/ul (1.0-4.8); ABS Monocytes 0.7 10^3/ul (0-0.8); ABS Neutrophils 41.9 10^3/ul (1.5-7.7); ABS Nucleated RBC 0.4 10^3/ul; Eosinophil % 0.9 %; Lymphocyte % 6.9 %; Nucleated Red Blood Cells % 0.8
[2022-07-01 06:53] LABS: Schistocytes ABSENT
[2022-07-01] MEDS ORDERED: Vancomycin 1,750 MG in NS 0.9% 500 ml BAG 500 ML IVPB ONE (07:00)
[2022-07-01] MEDS ORDERED: Zosyn per Pharmacy NOTE FOLLOW UP SCH (07:00)
[2022-07-01] MEDS ORDERED: Vancomycin per Pharmacy 1 EA NOTE FOLLOW UP SCH (07:00)
[2022-07-01] MEDS: Acyclovir IV 500 MG in NS 0.9% 100 ml BAG 100 ML IVPB SCH (07:56)
[2022-07-01] MEDS: Amiodarone IV 150 mg/3 ml VIAL SLOW PUSH SCH (08:34)
[2022-07-01] MEDS: Dexamethasone 0.1 MG/ML ORALSYR PO SCH (08:34)
[2022-07-01] MEDS: Pantoprazole VIAL 40 MG VIAL IV SCH (08:36)
[2022-07-01 08:38] LABS: Hematocrit 32 % (42-52); Hemoglobin 10.4 g/dL (14.0-18.0)
[2022-07-01] MEDS: Magic MouthWash2-BEN/MAAL/LIDO/NYST 240 ML BTL (alt formulation) SWISH SPIT SCH ×3 (08:48→15:59)
[2022-07-01 09:20] LABS: Albumin 2.1 g/dL (3.2-5.2); Calcium 8.9 mg/dL (8.6-10.3); Globulin 2.2 g/dL (2-4); Total Bilirubin 1.1 mg/dL (0.2-1.0); Total Protein 4.3 g/dL (6.4-8.9); eGFR CKD-EPI 33.7 (>60)
[2022-07-01 09:26] LABS: Potassium 5.2 mmol/L (3.5-5.0)
[2022-07-01] MEDS ORDERED: LORazepam 2 mg VIAL 1 ml IV PUSH PRN (12:00)
[2022-07-01] MEDS ORDERED: Ondansetron 4 mg VIAL 2 MG/ML 2 ml VIAL IV PRN (12:00)
[2022-07-01] MEDS ORDERED: LORazepam 2 mg VIAL 1 ml ONE (12:11)
[2022-07-01] MEDS ORDERED: Lorazepam PYXIS KEY ONE (12:11)
[2022-07-01] MEDS: Anidulafungin 100 MG in NS 0.9% 100 ml BAG 100 ML IVPB SCH (12:37)
[2022-07-01] MEDS ORDERED: ZOSYN 3.375 GM Q8H per EXTENDED INFUSION IV SCH (13:00)
[2022-07-01] MEDS: Atropine 1% (ORAL/SL) 15 ML BTL SL PRN ×2 (13:26→15:00)
[2022-07-01 13:42] VITALS: BP 108/82
[2022-07-01] MEDS ORDERED: Hydrocortisone INJ 100 MG/2ML 2 ML VIAL IV SCH (14:00)
[2022-07-01] MEDS ORDERED: TPN 24 HR with Dextrose 50% Water 500 ML, Amino Acid Infusion 10% 850 ML, Sterile Water... CENT\\PICC SCH (17:00)
[2022-07-01] MEDS ORDERED: Lorazepam PYXIS KEY PRN (20:09)
[2022-07-04 18:11] LABS: Pathologist Review rare strips
== END 2022-07-01 18:20 | disposition expired | DRG 871 ==
LOC: ED 10:07 → EDHOLD 12:46 → ICU 13:05
PROVIDERS: ADMIT Internal Medicine; ATTEND Internal Medicine